=== PATIENT | female | born 1995 ===

== ENCOUNTER 2017-11-10 10:16 | Emergency (ER) | payer OTHER ==
[~2017-11-10] VITALS: Ht 160 cm; Wt 5.0 kg
[~2017-11-10 10:16] MED LIST: IMODIUM A-D2 MG PO; LEVSIN/SL0.125 MG SL; MOTRIN800 MG PO; PEPCID40 MG PO; PHENERGAN25 MG PO; RELAGESIC TABLE1 TAB PO
[2017-11-10] MEDS ORDERED: PROTONIX20 MG (10:21)
== END 2017-11-10 12:01 | disposition home or self-care (01) ==
LOC: ER 10:16
DX: J35.01 Chronic tonsillitis (principal)

== ENCOUNTER 2018-04-02 06:32 | Emergency (ER) | payer OTHER ==
[~2018-04-02] VITALS: Ht 157.5 cm; Wt 53.5 kg
[~2018-04-02 06:32] MED LIST changes: +PROTONIX20 MG
== END 2018-04-02 22:22 | disposition home or self-care (01) ==
LOC: ER 06:32
DX: J35.01 Chronic tonsillitis (principal)

== ENCOUNTER 2018-12-01 19:46 | Emergency (ER) | payer OTHER ==
[~2018-12-01] VITALS: Ht 157.5 cm; Wt 54.4 kg
== END 2018-12-01 21:55 | disposition home or self-care (01) ==
LOC: ER 19:46
DX: K29.70 Gastritis, unspecified, without bleeding (principal); K92.0 Hematemesis

== ENCOUNTER 2020-06-24 09:01 | Emergency (ER) | payer OTHER ==
[~2020-06-24] VITALS: Ht 157.5 cm; Wt 61.2 kg
[2020-06-24] MEDS ORDERED: CLEOCIN HCL300 MG PO (10:03)
== END 2020-06-24 10:26 | disposition home or self-care (01) ==
LOC: ER 09:01
DX: J03.80 Acute tonsillitis due to other specified organisms (principal)

== ENCOUNTER 2021-02-22 12:22 | Emergency (ER) | payer OTHER ==
[~2021-02-22] VITALS: Ht 160 cm; Wt 54.4 kg
[~2021-02-22 12:22] MED LIST changes: +CLEOCIN HCL300 MG PO
[2021-02-22] MEDS ORDERED: MOVIPREP POWDE1 EACH PO (12:45)
[2021-02-22] MEDS ORDERED: KETO10TA2 PO (18:57)
[2021-02-22] MEDS ORDERED: MEDROLPACK PO (18:57)
== END 2021-02-22 19:12 | disposition home or self-care (01) ==
LOC: ER 12:22
DX: M79.18 Myalgia, other site (principal); M25.50 Pain in unspecified joint; M32.9 Systemic lupus erythematosus, unspecified; Z03.818 Encounter for observation for suspected exposure to other biological agents ruled out